=== PATIENT | female | born 1980 | race Asian ===

== ENCOUNTER 2023-11-17 09:46 | Emergency (ER) | payer OTHER, SELFPAY ==
[2023-11-17 09:49] VITALS: BP 148/109
[2023-11-17 09:52] VITALS: BMI 23.6
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
== END 2023-11-17 10:35 | disposition home or self-care (01) ==
LOC: EMR 09:46
PROVIDERS: EMERGENCY PHYSICIAN Emergency Medicine; FAMILY PHYSICIAN Internal Medicine
DX: S16.1XXA Strain of muscle, fascia and tendon at neck level, initial encounter (principal); V89.2XXA Person injured in unspecified motor-vehicle accident, traffic, initial encounter; Y92.410 Unspecified street and highway as the place of occurrence of the external cause; K21.9 Gastro-esophageal reflux disease without esophagitis
CPT/HCPCS: 99282